=== PATIENT | male | born 1980 | race Caucasian/White ===

== ENCOUNTER 2021-04-22 18:50 | Emergency (ER) | payer SELFPAY ==
[2021-04-22] MEDS ORDERED: VOLTAREN75 MG PO (21:12)
[2021-04-22 21:14] VITALS: BP 142/95
[2021-04-22] MEDS ORDERED: CLONAZEPAM1 MG PO (21:24)
[2021-04-22] MEDS ORDERED: LISINOPRIL2.5 MG PO (21:24)
== END 2021-04-22 21:40 | disposition home or self-care (01) | DRG 563 ==
LOC: ED 18:50
PROC: 2W3AXYZ Immobilization of Right Upper Arm using Other Device (ICD-10-PCS; principal; 2021-04-22)
DX: S53.401A Unspecified sprain of right elbow, initial encounter (principal); I10 Essential (primary) hypertension; F41.9 Anxiety disorder, unspecified; F17.290 Nicotine dependence, other tobacco product, uncomplicated; W17.81XA Fall down embankment (hill), initial encounter